=== PATIENT | male | born 1945 | race Caucasian/White ===

== ENCOUNTER → 2017-11-29 | Outpatient (CLI) | payer MEDICARE, OTHER ==
[~2017-11-29] MED LIST: ACET500T68 PO; ACYC5CRE6 TP; ASPI-757 PO; ATOR20TA65 PO; CHOL500025 PO; FINA5TAB67 PO; GLUC15002 PO; HYDR-4308 PO; IBUP-1455 PO; IBUP200C71 PO; LUTE20TA PO; MELO-207 PO; OMEG-24 PO; PSYL0.5235 PO; SIL50 PO; SIMV-42 PO; SIMV-49 PO; TAMS0.4C70 PO; UBID200C21 PO; VIT-7 PO; VIT-9 PO; VIT1CAPS33 PO; [UNRECOGNIZED DRUG - CODE] PO
== END ==
LOC: LAB 08:37
PROVIDERS: ATTEND Urology
DX: Z00.00 Encounter for general adult medical examination without abnormal findings (principal); R97.20 Elevated prostate specific antigen [PSA]; N40.1 Benign prostatic hyperplasia with lower urinary tract symptoms
CPT/HCPCS: 36415; 84403

== ENCOUNTER → 2017-11-29 | Outpatient (CLI) | payer MEDICARE, OTHER ==
[2017-11-29 09:41] LABS: LDL CHOLESTEROL 76 mg/dl
== END ==
LOC: LAB 08:34
PROVIDERS: ATTEND Internal Medicine
DX: I10 Essential (primary) hypertension (principal); E78.2 Mixed hyperlipidemia; N40.0 Benign prostatic hyperplasia without lower urinary tract symptoms; R97.20 Elevated prostate specific antigen [PSA]
CPT/HCPCS: 82040; 82247; 82310; 82374; 82435; 82465; 82565; 82947; 83718; 84075; 84132; 84153; 84155; 84295; 84450; 84460; 84478; 84520

== ENCOUNTER → 2018-05-26 | Outpatient (CLI) | payer MEDICARE, OTHER ==
[~2018-05-26] MED LIST changes: +IBUP-136 PO; -IBUP200C71 PO
[2018-05-26 10:02] LABS: LDL CHOLESTEROL 85 mg/dl
== END ==
LOC: LAB 09:22
PROVIDERS: ATTEND Internal Medicine
DX: E78.2 Mixed hyperlipidemia (principal); I10 Essential (primary) hypertension
CPT/HCPCS: 36415; 82040; 82247; 82310; 82374; 82435; 82465; 82565; 82947; 83718; 84075; 84132; 84155; 84295; 84450; 84460; 84478; 84520

== ENCOUNTER → 2019-01-17 | Outpatient (CLI) | payer MEDICARE, OTHER ==
[~2019-01-17] MED LIST changes: -HYDR-4308 PO; +HYDR-654 PO; +OCUVITE SOFTGE1 EACH PO; -VIT1CAPS33 PO
== END ==
LOC: LAB 09:20
PROVIDERS: ATTEND Urology
DX: R97.20 Elevated prostate specific antigen [PSA] (principal)
CPT/HCPCS: 36415; 84153

== ENCOUNTER → 2019-02-12 | Outpatient (CLI) | payer MEDICARE, OTHER ==
[~2019-02-12] MED LIST changes: +CHOL200074 PO; +OMEG-36 PO; +UBID100C9 PO; +VIT1CAPS9 PO; +Zicam
[2019-02-12 17:18] LABS: PLATELET COUNT, AUTOMATED 188 K/uL (150-450)
== END ==
LOC: LAB 16:29
PROVIDERS: ATTEND Family Medicine
DX: I10 Essential (primary) hypertension (principal)
CPT/HCPCS: 36415; 82040; 82247; 82310; 82374; 82435; 82565; 82947; 84075; 84132; 84155; 84295; 84450; 84460; 84520; 85025